=== PATIENT | female | born 1970 | race American Indian/Alaskan Native ===

== ENCOUNTER 2017-06-25 11:08 | Emergency (ER) | payer OTHER ==
[2017-06-25] MEDS ORDERED: ASPIRIN PO ONE (11:23)
[2017-06-25 12:00] LABS: Red Blood Count 4.05 M/mm3 (3.65-5.03)
[2017-06-25 12:01] LABS: Basophils % (Auto) 0.4 % (0.0-1.8); Eosinophils # (Auto) 0.3 K/mm3 (0.0-0.4); Eosinophils % (Auto) 2.9 % (0.0-4.3); Lymphocytes # (Auto) 2.3 K/mm3 (1.2-5.4); Lymphocytes % (Auto) 20.2 % (13.4-35.0); Mean Corpuscular HGB Conc 31 % (30-34); Mean Corpuscular Hemoglobin 22 pg (28-32); Mean Corpuscular Volume 72 fl (79-97); Monocytes # (Auto) 0.9 K/mm3 (0.0-0.8); Monocytes % (Auto) 8.1 % (0.0-7.3); Platelet Count 506 K/mm3 (140-440); Red Cell Distribution Width 16.5 % (13.2-15.2)
[2017-06-25 12:03] LABS: BUN/Creatinine Ratio 13; Blood Urea Nitrogen 8 mg/dL (7-17); Hemolysis Index 0
--- NOTE | 2017-06-25 13:03 | Emergency Department Report ---
ED Chest Pain HPI - General Chief Complaint: Chest Pain Stated Complaint: LEFT SIDE CHEST PAIN Time Seen by Provider: 06/25/17 12:44 Source: patient Mode of arrival: Wheelchair Limitations: No Limitations - History of Present Illness Initial Comments: Patient is 47 years old female with no significant past medical history. Patient presented to the ER complaining of sudden onset of left-sided chest pain. Patient described her pain as sharp and associated with shortness of breath. Patient denied any fever or cough or congestion. MD Complaint: chest pain -: Sudden, This morning Onset: during rest Pain Location: left chest Severity scale (0 -10): 6 Quality: sharp Consistency: constant - Related Data Allergies Allergy/AdvReac Type Severity Reaction Status Date / Time No Known Allergies Allergy Unverified 06/25/17 11:23 Heart Score - HEART Score History: Moderately suspicious EKG: Normal Age: 45-65 Risk factors: No known risk factors Troponin: < normal limit HEART Score: 2 - Critical Actions Critical Actions: 0-3 pts:0.9-1.7%risk of adverse cardiac event.Candidate for discharge ED Review of Systems ROS: Stated complaint: LEFT SIDE CHEST PAIN Other details as noted in HPI Comment: All other systems reviewed and negative Constitutional: denies: chills, fever Respiratory: shortness of breath. denies: cough, orthopnea, SOB with exertion, SOB at rest, wheezing Cardiovascular: chest pain. denies: palpitations, dyspnea on exertion, orthopnea Gastrointestinal: denies: abdominal pain, nausea, vomiting, diarrhea, constipation, hematemesis Neurological: denies: headache, weakness, numbness ED Past Medical Hx - Past Medical History Previous Medical History?: No - Surgical History Additional Surgical History: 4 , 2 right knee, 2left foot,tubiligation - Social History Smoking Status: Never Smoker Substance Use Type: None ED Physical Exam - General Limitations: No Limitations General appearance: alert, in no apparent distress - Head Head exam: Present: atraumatic, normocephalic, normal inspection - Eye Eye exam: Present: normal appearance, PERRL - ENT ENT exam: Present: normal exam, normal orophraynx, mucous membranes moist - Neck Neck exam: Present: normal inspection, full ROM. Absent: tenderness, meningismus, lymphadenopathy, thyromegaly - Respiratory Respiratory exam: Present: normal lung sounds bilaterally. Absent: respiratory distress, wheezes, rales, rhonchi, stridor, chest wall tenderness - Cardiovascular Cardiovascular Exam: Present: regular rate, normal rhythm, normal heart sounds - GI/Abdominal GI/Abdominal exam: Present: soft, normal bowel sounds. Absent: distended, tenderness, guarding, rebound, rigid, organomegaly, mass, bruit, pulsatile mass - Extremities Exam Extremities exam: Present: normal inspection, full ROM, normal capillary refill - Back Exam Back exam: Present: normal inspection, full ROM. Absent: tenderness, CVA tenderness (R), CVA tenderness (L) - Neurological Exam Neurological exam: Present: alert, oriented X3, CN II-XII intact, normal gait - Skin Skin exam: Present: warm, intact, normal color ED Course Vital Signs 06/25/17 06/25/17 06/25/17 11:19 13:55 15:17 Temperature 98.3 F Pulse Rate 83 Respiratory 18 16 16 Rate Blood Pressure 125/74 O2 Sat by Pulse 98 Oximetry - Reevaluation(s) Reevaluation #1: 06/25/17 16:00 Patient is stated that she is feeling much better. Patient stated that Toradol did help a lot. ED Medical Decision Making - Lab Data Result diagrams: 06/25/17 11:27 06/25/17 11:27 - EKG Data -: EKG Interpreted by Ut EKG shows normal: sinus rhythm - EKG Data Interpretation: no acute changes - Radiology Data Radiology results: report reviewed Referring Physician: ANNAMARIE CHANEL Patient Name: SG GORMAN Date of : 1970 Sex: Female Report Date: 2017-06-25 Report Status: Finalized Findings [facility] [address] [place] [address] XRay Report Signed Patient: SG GORMAN MR#: [id number] : 1970 Acct:[id number] Age/Sex: 47 / F ADM Date: 06/25/17 Loc: ED Attending Dr: Ordering Physician: ANNAMARIE CHANEL Date of Service: 06/25/17 Procedure(s): XR chest 1V ap Accession Number(s): [id number] cc: MOHAMED H. ELBASHA Fluoro Time In Minutes: PORTABLE CHEST: Chest pain/SOB An AP portable view of the chest demonstrates a normal cardiac contour considering the limits of this technique. The lungs are clear with no evidence of infiltrate, fluid or failure. IMPRESSION: Normal portable chest. Transcribed By: JOSE Dictated By: JERED DEAL MD Electronically Authenticated By: JERED DEAL MD Signed Date/Time: 06/25/171299 DD/ 1300 TD/TT: 06/25/17 1300 - Medical Decision Making Patient stated that she is feeling better. Chest pain is very atypical. Differential diagnosis considered is coronary artery disease, pulmonary embolism , pneumothorax, pneumonia. Patient had 2 negative troponin, d-dimer is negative. Chest x-ray did not show any evidence of pneumothorax or pneumonia. Since patient's symptoms improve and its atypical patient can be discharged home and follow-up with her primary care physician. I informed the patient to return to the ER if her symptoms get worse. Critical care attestation.: If time is entered above; I have spent that time in minutes in the direct care of this critically ill patient, excluding procedure time. ED Disposition Clinical Impression: Atypical chest pain, Pleurisy Disposition: DC-01 TO HOME OR SELFCARE Is pt being admited?: No Condition: Stable Instructions: Chest Pain (ED), Pleurisy (ED) Referrals: PRIMARY CARE, [Primary Care Provider] - 3-5 Days
--- NOTE | 2017-06-25 13:20 | XRay Report ---
PORTABLE CHEST: Chest pain/SOB An AP portable view of the chest demonstrates a normal cardiac contour considering the limits of this technique. The lungs are clear with no evidence of infiltrate, fluid or failure. IMPRESSION: Normal portable chest.
[2017-06-25] MEDS ORDERED: MORPHINE IV ONE (13:45)
[2017-06-25] MEDS ORDERED: ZOFRAN IV ONE (13:46)
[2017-06-25] MEDS ORDERED: MORPHINE ONE (13:47)
[2017-06-25] MEDS ORDERED: ZOFRAN ONE (13:47)
[2017-06-25] MEDS ORDERED: TORADOL IV ONE (15:02)
[2017-06-25 16:54] VITALS: BP 113/64
== END 2017-06-25 16:57 | disposition home or self-care (01) ==
LOC: ED 11:08
DX: R09.1 Pleurisy (principal)
CPT/HCPCS: 36415; 71045; 80048; 84484; 85025; 85379; 93005; 93010; 96374; 96375; 99284; J1885; J2270; J2405